=== PATIENT | male | born 1980 | race Caucasian/White ===

== ENCOUNTER 2017-03-22 09:38 | Emergency (ER) | payer BC ==
[2017-03-22] MEDS ORDERED: Ketorolac INJ* 60 MG/2 ML VIAL IM ONE (10:40)
--- NOTE | 2017-03-22 10:40 | UC ---
Back Pain HPI - HPI Summary HPI Summary: low back muscle strain began when lifting weights yesterday - History of Current Complaint Chief Complaint: UCBackPain Stated Complaint: BACK PAIN Time Seen by Provider: 03/22/17 10:27 Hx Obtained From: Patient Onset/Duration: Sudden Onset, Lasting Days - 1, Still Present Timing: Constant Severity Initially: Moderate Severity Currently: Moderate Pain Intensity: 7 Pain Scale Used: 0-10 Numeric Back Pain: Is Discrete @ - bilateral lubar sacral area Character: Aching, Throbbing, Stiffness Aggravating: Movement Alleviating: Rest, Position Associated Signs And Symptoms: Negative: Weakness, Numbness, Tingling, Flank Pain, Pain with Weight Bearing - Allergies/Home Medications Allergies/Adverse Reactions: Allergies Allergy/AdvReac Type Severity Reaction Status Date / Time No Known Allergies Allergy Verified 06/14/14 01:17 PMH/Surg Hx/FS Hx/Imm Hx Previously Healthy: Yes - Surgical History Surgical History: Yes - Family History Known Family History: Positive: None Family History: no reported issues in family lineage - Social History Occupation: Employed Full-time Lives: With Family Alcohol Use: Weekly Alcohol Amount: 1/week Substance Use Type: None Smoking Status (MU): Never Smoked Tobacco Review of Systems Constitutional: Negative Skin: Negative Eyes: Negative ENT: Negative Respiratory: Negative Cardiovascular: Negative Gastrointestinal: Negative Genitourinary: Negative Motor: Negative Neurovascular: Negative Musculoskeletal: Negative, Myalgia - right and left side of back at the level of the lumbar/sacral spine Neurological: Negative Psychological: Negative All Other Systems Reviewed And Are Negative: Yes Physical Exam Triage Information Reviewed: Yes Appearance: Well-Appearing, Well-Nourished, Pain Distress Vital Signs: Initial Vital Signs Temp 98.2 F 03/22/17 10:16 Pulse 94 03/22/17 10:16 Resp 16 03/22/17 10:16 BP 142/90 03/22/17 10:16 Pulse Ox 99 03/22/17 10:16 Vital Signs Reviewed: Yes Eye Exam: Normal Eyes: Positive: Conjunctiva Clear ENT Exam: Normal ENT: Positive: Normal ENT inspection, Hearing grossly normal, Pharynx normal, TMs normal. Negative: Nasal congestion, Nasal drainage, Trismus, Muffled/ hoarse voice Dental Exam: Normal Neck exam: Normal Neck: Positive: Supple, Nontender, No Lymphadenopathy Respiratory Exam: Normal Respiratory: Positive: Chest non-tender, Lungs clear, Normal breath sounds, No respiratory distress, No accessory muscle use Cardiovascular Exam: Normal Cardiovascular: Positive: RRR, No Murmur, Pulses Normal, Brisk Capillary Refill Abdomen Description: Negative: CVA Tenderness (R) Bowel Sounds: Positive: Present Musculoskeletal Exam: Normal Musculoskeletal: Positive: Strength Intact, ROM Intact, No Edema Neurological Exam: Normal Neurological: Positive: Alert, Muscle Tone Normal Psychological Exam: Normal Psychological: Positive: Normal Response To Family, Age Appropriate Behavior, Abnormal Response To Family Skin Exam: Normal Skin: Positive: rashes Re-Evaluation - Re-Evaluation Second Eval Change: Improved - continues to c/o pain but moving better Back Pain Course/Dx - Course Course Of Treatment: nasaids, muscle relaxers, pt follow BP with PCP - Differential Dx/Diagnosis Differential Diagnosis/HQI/PQRI: Cauda Equina Syndrome, Epidural Abscess, Herniated Disc, Strain, Sprain Provider Diagnoses: Low back muscle strain Discharge - Discharge Plan Condition: Stable Disposition: HOME Prescriptions: Cyclobenzaprine TAB* [Flexeril 10 MG TAB*] 10 mg PO TID PRN #15 tab PRN Reason: muscle spasm Naproxen Sodium [Naproxen Sodium 500 MG TAB] 500 mg PO BID PRN #30 tab PRN Reason: Take with food Patient Education Materials: Muscle Strain (ED), Chronic Hypertension (ED), Hypertension (ED), Lower Back Exercises (ED) Referrals: Nj Palencia MD [Primary Care Provider] - 2 Weeks
[2017-03-22 10:47] VITALS: BP 142/90
== END 2017-03-22 11:28 | disposition home or self-care (01) ==
LOC: UCEAST 09:38
DX: S39.012A Strain of muscle, fascia and tendon of lower back, initial encounter (principal); X50.3XXA Overexertion from repetitive movements, initial encounter; Y93.B3 Activity, free weights; Y92.9 Unspecified place or not applicable
CPT/HCPCS: 96372; 99212; G0463; J1885

== ENCOUNTER 2018-01-03 11:37 | Emergency (ER) | payer BC ==
[2018-01-03 12:00] VITALS: BP 131/78
--- NOTE | 2018-01-03 12:54 | UC ---
Respiratory Complaint HPI - HPI Summary HPI Summary: c/o cold like symptoms for the past 2 weeks, starting from the time he was visiting [facility]. He states he has some residual mucus and congestion of right ear with muffling of sound and postnasal drip which is clear. Denies fever, cough, malaise, wheezing. States he very seldomly gets SOB when running. - History of Current Complaint Chief Complaint: UCRespiratory Stated Complaint: HEADACHE EAR PAIN RESP ISSUE Time Seen by Provider: 01/03/18 12:44 Hx Obtained From: Patient Onset/Duration: Gradual Onset, Lasting Weeks Severity Initially: Moderate Severity Currently: Mild Pain Intensity: 1 Aggravating Factors: Nothing Alleviating Factors: Upright Position Associated Signs And Symptoms: Positive: URI, Nasal Congestion - Risk Factors Pulmonary Embolism Risk Factors: Negative Cardiac Risk Factors: Negative Pseudomonas Risk Factors: Negative Tuberculosis Risk Factors: Negative - Allergies/Home Medications Allergies/Adverse Reactions: Allergies Allergy/AdvReac Type Severity Reaction Status Date / Time No Known Allergies Allergy Verified 01/03/18 11:58 Home Medications: Home Medications NK [No Home Medications Reported] 01/03/18 [History Confirmed 01/03/18] PMH/Surg Hx/FS Hx/Imm Hx Previously Healthy: Yes - Surgical History Surgical History: Yes - Family History Known Family History: Positive: None Family History: no reported issues in family lineage - Social History Alcohol Use: Weekly Alcohol Amount: 1/week Substance Use Type: None Smoking Status (MU): Never Smoked Tobacco Review of Systems Constitutional: Negative ENT: Ear Ache, Nasal Discharge All Other Systems Reviewed And Are Negative: Yes Physical Exam Triage Information Reviewed: Yes Appearance: Well-Appearing, No Pain Distress, Well-Nourished Vital Signs: Initial Vital Signs Temp 98 F 01/03/18 11:58 Pulse 87 01/03/18 11:58 Resp 16 01/03/18 11:58 BP 131/78 01/03/18 11:58 Pulse Ox 99 01/03/18 11:58 Vital Signs Reviewed: Yes Eyes: Positive: Conjunctiva Clear ENT: Positive: Pharynx normal, TMs normal, TM dull - right, Uvula midline Neck: Positive: Supple, Nontender, No Lymphadenopathy Respiratory: Positive: Lungs clear, Normal breath sounds, No respiratory distress Cardiovascular: Positive: RRR, No Murmur, Pulses Normal, Brisk Capillary Refill Bowel Sounds: Positive: Present UC Diagnostic Evaluation - Laboratory O2 Sat by Pulse Oximetry: 99 Respiratory Course/Dx - Course Course Of Treatment: Continue oral hydration, avoid fried food, alcohol, caffeine. Continue exercise as tolerated. Normal saline nasal irrigation - Differential Dx/Diagnosis Provider Diagnoses: serous ottitis media right ear. URI Discharge - Sign-Out/Discharge Documenting (check all that apply): Discharge - Discharge Plan Condition: Stable Disposition: HOME Patient Education Materials: Serous Otitis Media (ED), Viral Syndrome (ED), Liquids and Hydration for Athletes (ED) Referrals: Nj Palencia MD [Primary Care Provider] - - Billing Disposition and Condition Condition: STABLE Disposition: HOME
== END 2018-01-03 13:01 | disposition home or self-care (01) ==
LOC: UCEAST 11:37
DX: H65.91 Unspecified nonsuppurative otitis media, right ear (principal); J06.9 Acute upper respiratory infection, unspecified
CPT/HCPCS: 99212; G0463

== ENCOUNTER 2019-03-01 10:17 | Emergency (ER) | payer OTHER ==
[2019-03-01 11:01] VITALS: BP 123/88
[2019-03-01] MEDS ORDERED: Ketorolac INJ* 30 MG/ML 1 ML VIAL ONE (12:28)
--- NOTE | 2019-03-01 12:31 | UC ---
UC General HPI - HPI Summary HPI Summary: Patient states he pulled his back out two years ago, similar to this episode. Got a shot and was able to walk out of here and felt so much better. States about a week ago he was lifting heavy boxes and each day his low back pain has gotten dramatically worse. No loss in bowel or bladder control. No numbness or tingling down either leg. Pain b/l low back. Difficulty to move, sit - most comfortable standing. Also wants STD screening. Meds; REviewed - History of Current Complaint Chief Complaint: UCBackPain Stated Complaint: BACK PAIN Time Seen by Provider: 03/01/19 12:19 Pain Intensity: 8 - Allergy/Home Medications Allergies/Adverse Reactions: Allergies Allergy/AdvReac Type Severity Reaction Status Date / Time No Known Allergies Allergy Verified 03/01/19 10:55 PMH/Surg Hx/FS Hx/Imm Hx Previously Healthy: Yes - Surgical History Surgical History: None - Family History Known Family History: Positive: None Family History: no reported issues in family lineage - Social History Alcohol Use: Occasionally Alcohol Amount: 1/week Substance Use Type: None Smoking Status (MU): Never Smoked Tobacco Review of Systems All Other Systems Reviewed And Are Negative: Yes Physical Exam Triage Information Reviewed: Yes Appearance: Well-Appearing Vital Signs: Initial Vital Signs Temp 98.8 F 03/01/19 10:55 Pulse 88 03/01/19 10:55 Resp 18 03/01/19 10:55 BP 123/88 03/01/19 10:55 Pulse Ox 98 03/01/19 10:55 Musculoskeletal: Positive: Other: - pain over b/l SI joint region. Able to do ROM but limited due to pain. Normal strength in lower ext Course/Dx - Course Course Of Treatment: This is a 39 yr old with acute on chronic low back pain Assessment No neuro deficits Toradol 60 mg IM x 1 STD screening - HIV, syphilis, Hep C, GC & CHlamydia Plan Recommend naproxen as prescribed -take with food Flexeril as needed for spasms If symptoms persist or worsen, recommend follow up with PCP or return to urgent care We will contact you if any of your STD/STI screening is positive - Diagnoses Provider Diagnosis: Low back pain Discharge - Sign-Out/Discharge Documenting (check all that apply): Patient Departure All imaging exams completed and their final reports reviewed: No Studies - Discharge Plan Condition: Good Disposition: HOME Prescriptions: Cyclobenzaprine TAB* [Flexeril 10 MG TAB*] 10 mg PO TID PRN #30 tab PRN Reason: Spasms Naproxen [Naproxen 500 mg tab] 500 mg PO BID #30 tablet. Patient Education Materials: Low Back Strain (ED) Referrals: Nj Palencia MD [Primary Care Provider] - Additional Instructions: Recommend naproxen as prescribed -take with food Flexeril as needed for spasms If symptoms persist or worsen, recommend follow up with PCP or return to urgent care We will contact you if any of your STD/STI screening is positive - Billing Disposition and Condition Condition: GOOD Disposition: Home
[2019-03-01] MEDS: Ketorolac INJ* 60 MG/2 ML VIAL IM ONE (12:33)
[2019-03-02 11:30] LABS: Hepatitis C Antibody Nonreactive (Nonreactive)
[2019-03-02 13:18] LABS: Neisseria gonorrhoeae (GC) RNA Negative (Negative)
== END 2019-03-01 13:00 | disposition home or self-care (01) ==
LOC: UCEAST 10:17
DX: M54.5 Low back pain (principal); G89.29 Other chronic pain
CPT/HCPCS: 36415; 86703; 86780; 86803; 87491; 87591; 99211; G0463; J1885

== ENCOUNTER 2019-09-12 11:51 | Emergency (ER) | payer OTHER ==
[2019-09-12 12:09] VITALS: BP 130/80
--- NOTE | 2019-09-12 12:16 | UC ---
Respiratory Complaint HPI - HPI Summary HPI Summary: 39 y/o male presents to the urgent care c/o fever, chills, body aches, GENTILE and dry cough since yesterday. He took Tylenol PO last night and he woke up this morning w/ sinus congestion clear nasal discharge and chills. Pain is 5/10 and has not eaten anything, but has been drinking fluids. Pt denies SOB, dizziness, SOB, wheezing, chest pain, abdominal pain, N/V/D. - History of Current Complaint Chief Complaint: UCGeneralIllness Stated Complaint: COUGH Time Seen by Provider: 09/12/19 12:15 Hx Obtained From: Patient Onset/Duration: Gradual Onset, Lasting Days - 1 day, Still Present, Worse Since - this morning Timing: Constant Severity Initially: Mild Severity Currently: Moderate Pain Intensity: 5 - GENTILE, body aches Pain Scale Used: 0-10 Numeric Character: Cough: Nonproductive Aggravating Factors: Recumbent Position Alleviating Factors: OTC Meds - Tylenol PO last night Associated Signs And Symptoms: Positive: Fever, Chills, URI, Nasal Congestion - clear. Negative: Wheezing, Hoarseness - Risk Factors Pulmonary Embolism Risk Factors: Negative Cardiac Risk Factors: Negative Pseudomonas Risk Factors: Negative Tuberculosis Risk Factors: Negative - Allergies/Home Medications Allergies/Adverse Reactions: Allergies Allergy/AdvReac Type Severity Reaction Status Date / Time No Known Allergies Allergy Verified 09/12/19 12:09 PMH/Surg Hx/FS Hx/Imm Hx Previously Healthy: Yes - Pt denies PMHX - Surgical History Surgical History: None - Family History Known Family History: Positive: None - Pt denies FMHX Family History: no reported issues in family lineage - Social History Occupation: Employed Full-time Lives: With Family Alcohol Use: Weekly Alcohol Amount: 1/week Substance Use Type: None Smoking Status (MU): Never Smoked Tobacco Review of Systems All Other Systems Reviewed And Are Negative: Yes Constitutional: Positive: Fever, Chills, Fatigue, Other - body aches Skin: Positive: Negative Eyes: Positive: Negative ENT: Positive: Nasal Discharge - clear, Sinus Congestion Respiratory: Positive: Cough - dry Cardiovascular: Positive: Negative Gastrointestinal: Positive: Negative Genitourinary: Positive: Negative Motor: Positive: Negative Neurovascular: Positive: Negative Musculoskeletal: Positive: Myalgia Neurological: Positive: Headache Psychological: Positive: Negative Is Patient Immunocompromised?: No Physical Exam - Summary Physical Exam Summary: VITAL SIGNS: Reviewed. GENERAL: Patient is a well developed and nourished male who is sitting comfortably in the examining table. Patient is not in any acute respiratory distress. HEAD AND FACE: No signs of trauma. No ecchymosis, hematomas or skull depressions. No sinus tenderness. EYES: PERRLA, EOMI x 2, No injected conjunctiva, no nystagmus. No photophobia. EARS: Hearing grossly intact. Ear canals and tympanic membranes are within normal limits. MOUTH: Positive pharynx with mild erythema, no exudates, No B/L tonsillar enlargement , no exudate. Uvula in midline. edematous nasal mucosa w/ clear nasal discharge, clear PND NECK: Supple, trachea is midline, Positive anterior cervical lymphadenopathy, no JVD, no carotid bruit, no c-spine tenderness, neck with full ROM. No meningeal signs, no Kernig's or brudzinskis signs. CHEST: Symmetric, no tenderness at palpation LUNGS: Clear to auscultation bilaterally. No wheezing or crackles. CVS: Regular rate and rhythm, S1 and S2 present, no murmurs or gallops appreciated. ABDOMEN: Soft, non-tender. No signs of distention. No rebound no guarding, and no masses palpated. Bowel sounds are normal. EXTREMITIES: FROM in all major joints, no edema, no cyanosis or clubbing. NEURO: Alert and oriented x 3. No acute neurological deficits. Pt follows commands. SKIN: Dry and warm Triage Information Reviewed: Yes Vital Signs: Initial Vital Signs Temp 100.8 F 09/12/19 12:06 Pulse 105 09/12/19 12:06 Resp 18 09/12/19 12:06 BP 130/80 09/12/19 12:06 Pulse Ox 96 09/12/19 12:06 Respiratory Course/Dx - Course Course Of Treatment: 39 y/o male presents to the urgent care c/o fever, chills, body aches, GENTILE and dry cough since yesterday. He took Tylenol PO last night and he woke up this morning w/ sinus congestion clear nasal discharge and chills. Pain is 5/10 and has not eaten anything, but has been drinking fluids. Pt denies SOB, dizziness, SOB, wheezing, chest pain, abdominal pain, N/V/D. Hx obtained. Pt febrile and hemodynamically stable with a viral syndrome on examination. .Influenza A&B ordered: result: Influenza A positive. Pt given Ibuprofen PO by the nurse to alleviate symptoms. Pt Rx Tamiflu and ibuprofen PO to alleviates symptoms. Advised on hand washing and wear a mask to avoid spreading. Pt advised to rest, increase fluid intake, eat well and avoid strenuous exercise. If symptoms do not improve or worsen advised to return to the urgent care or f/u with her PCP for further evaluation and treatment. Pt understood and agreed w/ plan of care - Differential Dx/Diagnosis Differential Diagnosis/HQI/PQRI: Asthma, Bronchitis, Influenza, Laryngitis, Lower Resp Infection, Sinusitis Provider Diagnosis: Influenza A Discharge ED - Sign-Out/Discharge Documenting (check all that apply): Patient Departure - D/C home All imaging exams completed and their final reports reviewed: No Studies - Discharge Plan Condition: Stable Disposition: HOME Prescriptions: Ibuprofen TAB* [Motrin TAB* 800 MG] 800 mg PO Q6H PRN #30 tab PRN Reason: fever Oseltamivir CAP* [Tamiflu CAP*] 75 mg PO BID #10 cap Patient Education Materials: Influenza (ED) Forms: *Work Release Referrals: Nj Palencia MD [Primary Care Provider] - 2 Days Additional Instructions: 1- Please take the full course of the antiviral to avoid resistance. Encourage hand washing and wear a mask to avoid spreading. 2-Please continue taking Ibuprofen PO q6-8hrs prn as instructed after meals to alleviate fever, and sore throat. Increase fluid intake, eat well, rest and avoid strenuous exercise. 3-If symptoms do not improve or worsen please return to the urgent care or f/u with your PCP in 2 days for further evaluation and treatment. - Billing Disposition and Condition Condition: STABLE Disposition: Home
[2019-09-12] MEDS ORDERED: Ibuprofen TAB* 400 MG PO ONE (12:27)
[2019-09-12 15:28] LABS: Influenza A Molecular POSITIVE (Negative)
== END 2019-09-12 13:02 | disposition home or self-care (01) ==
LOC: UCEAST 11:51
DX: J11.1 Influenza due to unidentified influenza virus with other respiratory manifestations (principal); R53.83 Other fatigue
CPT/HCPCS: 99212; A9270-GY; G0463

== ENCOUNTER 2019-10-08 11:56 | Emergency (ER) | payer OTHER ==
[2019-10-08 13:05] VITALS: BP 128/78
--- NOTE | 2019-10-08 13:21 | UC ---
Abdominal Pain Male HPI - HPI Summary HPI Summary: patient has had intermittent episodes of diarrhea and constipation for the last 10 days no fever nausea or vomiting was in [place] in the last 30 days--no known illness exposure with similar sx. - History of Current Complaint Chief Complaint: UCAbdominalPain Stated Complaint: ABDOMINAL PAIN Time Seen by Provider: 10/08/19 13:20 Hx Obtained From: Patient Onset/Duration: Gradual Onset, Lasting Days - 10 Timing: Intermittent Episodes Lasting: Pain Intensity: 0 Pain Scale Used: 0-10 Numeric Location: Diffuse Radiates: No Character: Colicy Aggravating Factor(s): Nothing Alleviating Factor(s): Nothing Associated Signs And Symptoms: Positive: Diarrhea. Negative: Fever - Allergies/Home Medications Allergies/Adverse Reactions: Allergies Allergy/AdvReac Type Severity Reaction Status Date / Time No Known Allergies Allergy Verified 10/08/19 13:06 Home Medications: Home Medications NK [No Home Medications Reported] 10/08/19 [History Confirmed 10/08/19] PMH/Surg Hx/FS Hx/Imm Hx Previously Healthy: Yes - Surgical History Surgical History: None - Family History Known Family History: Positive: None - Pt denies FMHX Family History: no reported issues in family lineage - Social History Occupation: Employed Full-time Lives: With Family Alcohol Use: Occasionally Alcohol Amount: 1/week Substance Use Type: None Smoking Status (MU): Never Smoked Tobacco Review of Systems All Other Systems Reviewed And Are Negative: Yes Constitutional: Positive: Negative Skin: Positive: Negative Eyes: Positive: Negative ENT: Positive: Negative Respiratory: Positive: Negative Cardiovascular: Positive: Negative Gastrointestinal: Positive: Abdominal Pain - intermittent, Diarrhea Genitourinary: Positive: Negative Motor: Positive: Negative Neurovascular: Positive: Negative Musculoskeletal: Positive: Negative Neurological: Positive: Negative Psychological: Positive: Negative Is Patient Immunocompromised?: No Physical Exam Triage Information Reviewed: Yes Appearance: Well-Appearing, No Pain Distress, Well-Nourished Vital Signs: Initial Vital Signs Temp 98.9 F 10/08/19 12:56 Pulse 72 10/08/19 12:56 Resp 12 10/08/19 12:56 BP 128/78 10/08/19 12:56 Pulse Ox 100 10/08/19 12:56 Vital Signs Reviewed: Yes Eye Exam: Normal Eyes: Positive: Conjunctiva Clear ENT Exam: Normal ENT: Positive: Normal ENT inspection, Hearing grossly normal. Negative: Trismus , Muffled voice, Hoarse voice Dental Exam: Normal Neck exam: Normal Neck: Positive: Supple, Nontender Respiratory Exam: Normal Respiratory: Positive: Chest non-tender, No respiratory distress, No accessory muscle use Cardiovascular Exam: Normal Cardiovascular: Positive: RRR, Pulses Normal, Brisk Capillary Refill Abdominal Exam: Normal Abdomen Description: Positive: Nontender, No Organomegaly, Soft. Negative: CVA Tenderness (R), CVA Tenderness (L), Distended, Guarding, McBurney's Point Tenderness Bowel Sounds: Positive: Present Musculoskeletal Exam: Normal Musculoskeletal: Positive: Strength Intact, ROM Intact, No Edema Neurological Exam: Normal Neurological: Positive: Alert, Muscle Tone Normal Psychological Exam: Normal Skin Exam: Normal Abd Pain Male Course/Dx - Course Course Of Treatment: patient is going to collect a stool sample. he is agreeable to going to the hospital if symptoms worsen, he will follow with Dr. Palencia this week---dietary tips for relief of diarrhea provided - Differential Dx/Clinical Impression Provider Diagnosis: Diarrhea Discharge ED - Sign-Out/Discharge Documenting (check all that apply): Patient Departure All imaging exams completed and their final reports reviewed: No Studies - Discharge Plan Condition: Stable Disposition: HOME Patient Education Materials: Acute Diarrhea (ED), Nutrition Tips for Relief of Diarrhea (ED) Referrals: Nj Palencia MD [Primary Care Provider] - 3 Days - Billing Disposition and Condition Condition: STABLE Disposition: Home - Attestation Statements Provider Attestation: I was available for consult. This patient was seen by the [facility]. The patient was not presented to, seen by, or examined by me. -Fransisco
== END 2019-10-08 13:47 | disposition home or self-care (01) ==
LOC: UCEAST 11:56
DX: R19.7 Diarrhea, unspecified (principal)
CPT/HCPCS: 99211; G0463

== ENCOUNTER 2019-11-16 08:16 | Emergency (ER) | payer OTHER ==
[2019-11-16 08:28] VITALS: BP 140/81
[2019-11-16 08:47] LABS: Influenza A Molecular Negative (Negative); Influenza B Molecular Negative (Negative)
--- NOTE | 2019-11-16 09:31 | UC ---
Respiratory Complaint HPI - HPI Summary HPI Summary: 2 DAYS OF COUGH, CONGESTION, CHILLS BODY ACHES. NO FEVER. - History of Current Complaint Chief Complaint: UCGeneralIllness Stated Complaint: FLU SYMPTOMS Time Seen by Provider: 11/16/19 08:22 Hx Obtained From: Patient Onset/Duration: Gradual Onset, Lasting Days, Still Present Timing: Constant Severity Initially: Moderate Severity Currently: Moderate Pain Intensity: 0 Pain Scale Used: 0-10 Numeric Character: Cough: Nonproductive Aggravating Factors: Nothing Alleviating Factors: Nothing Associated Signs And Symptoms: Positive: Chills, URI, Nasal Congestion. Negative: Dyspnea, Fever, Wheezing - Allergies/Home Medications Allergies/Adverse Reactions: Allergies Allergy/AdvReac Type Severity Reaction Status Date / Time No Known Allergies Allergy Verified 11/16/19 08:23 PMH/Surg Hx/FS Hx/Imm Hx Previously Healthy: Yes - Surgical History Surgical History: None - Family History Known Family History: Positive: None - Pt denies FMHX Family History: no reported issues in family lineage - Social History Alcohol Use: Occasionally Alcohol Amount: 1/week Substance Use Type: None Smoking Status (MU): Never Smoked Tobacco Review of Systems All Other Systems Reviewed And Are Negative: Yes Constitutional: Positive: Chills, Fatigue ENT: Positive: Nasal Discharge Respiratory: Positive: Cough Cardiovascular: Positive: Negative Gastrointestinal: Positive: Negative Physical Exam Triage Information Reviewed: Yes Appearance: Well-Appearing, No Pain Distress, Well-Nourished Vital Signs: Initial Vital Signs Temp 98.2 F 11/16/19 08:24 Pulse 87 11/16/19 08:24 Resp 16 11/16/19 08:24 BP 140/81 11/16/19 08:24 Pulse Ox 100 11/16/19 08:24 Laboratory Tests 11/16/19 08:35 Influenza A (Rapid) Negative Influenza B (Rapid) Negative Vital Signs Reviewed: Yes Eyes: Positive: Conjunctiva Clear ENT: Positive: Hearing grossly normal, Pharynx normal, TMs normal Neck: Positive: Supple, Nontender, No Lymphadenopathy Respiratory Exam: Normal Cardiovascular Exam: Normal Abdomen Description: Positive: Soft Musculoskeletal: Positive: No Edema Neurological: Positive: Alert Psychological: Positive: Age Appropriate Behavior Skin: Negative: Rashes Respiratory Course/Dx - Course Course Of Treatment: FLU SWAB NEGATIVE. LIKELY VIRALLY MEDIATED SYMPTOMS THAT SHOULD RESOLVE ON THEIR OWN WITH TIME. REST, HYDRATE, OTC MEDS NEEDED. FOLLOW-UP IF NOT IMPROVING EXPECTED. - Differential Dx/Diagnosis Provider Diagnosis: Upper respiratory infection Discharge ED - Sign-Out/Discharge Documenting (check all that apply): Patient Departure All imaging exams completed and their final reports reviewed: No Studies - Discharge Plan Condition: Stable Disposition: HOME Patient Education Materials: Upper Respiratory Infection (ED) Referrals: Nj Palencia MD [Primary Care Provider] - If Needed Additional Instructions: FLU SWAB NEGATIVE. YOUR SYMPTOMS ARE LIKELY VIRALLY MEDIATED AND SHOULD RESOLVE ON THEIR OWN WITH TIME. NO INDICATION FOR ANTIBIOTICS AT PRESENT. REST, HYDRATE , OTC MEDS NEEDED. SEEK FOLLOW-UP IF YOU ARE NOT IMPROVING OVER THE NEXT 1-2 WEEKS. USE OTC AFRIN FOR NASAL CONGESTION IF NEEDED. 2 SPRAYS IN EACH NOSTRIL TWICE DAILY NEEDED. DO NOT USE FOR MORE THAN 3-4 DAYS IN A ROW TO PREVENT DEVELOPING REBOUND CONGESTION. - Billing Disposition and Condition Condition: STABLE Disposition: Home
== END 2019-11-16 08:58 | disposition home or self-care (01) ==
LOC: UCEAST 08:16
DX: J06.9 Acute upper respiratory infection, unspecified (principal)
CPT/HCPCS: 99211; G0463